=== PATIENT | male | born 1985 | race Two or more races ===

== ENCOUNTER 2017-11-07 13:21 | Emergency (ER) | payer MEDICAID ==
[~2017-11-07] VITALS: Ht 167.6 cm; Wt 81.6 kg
[2017-11-07 13:38] VITALS: BP 120/70
[2017-11-07 13:48] LABS: BASOPHILS % (AUTO) 0.8 % (0.0-2.0); EOSINOPHILS % (AUTO) 1.2 % (0.0-3.0); HEMATOCRIT 42.6 % (42.0-52.0); LYMPHOCYTES % (AUTO) 25.6 % (20.0-45.0); MEAN CORPUSCULAR VOLUME 94 FL (80-99); MONOCYTES % (AUTO) 6.9 % (1.0-10.0); NEUTROPHILS % (AUTO) 65.6 % (45.0-75.0); PLATELET COUNT 199 K/UL (150-450); RED BLOOD COUNT 4.53 M/UL (4.70-6.10); RED CELL DISTRIBUTION WIDTH 10.5 % (11.6-14.8); WHITE BLOOD COUNT 6.1 K/UL (4.8-10.8)
[2017-11-07 13:49] LABS: HEMOGLOBIN 15.5 G/DL (14.2-18.0)
--- NOTE | 2017-11-07 13:52 | Emergency Room Report ---
History of Present Illness General Chief Complaint: Chest Pain Source: Patient Present Illness HPI 32-year-old male with no medical problems presents with left-sided chest tightness or pain in his left arm reports it's like a squeezing type pain in his started at 3 AM last night, he is not taking medications for it but he did feel sensation shortness of breath since that time started, he has not had a syncopal episode, denies cough or hemoptysis, denies recent travel, leg pain leg swelling, any other symptoms at all. Allergies: Coded Allergies: No Known Allergies (Unverified , 11/07/17) Patient History Past Medical History: see triage record Social History: Reports: alcohol use, drug use - cocaine occasionally Reviewed Nursing Documentation: PMH: Agreed; PSxH: Agreed Nursing Documentation-PMH Past Medical History: No Stated History Review of Systems All Other Systems: negative except mentioned in HPI Physical Exam Vital Signs Date Time Temp Pulse Resp B/P (MAP) Pulse Ox O2 Delivery O2 Flow Rate FiO2 11/07/17 13:25 97.5 66 20 107/61 99 Room Air 97.5 Sp02 EP Interpretation: reviewed, normal General Appearance: normal inspection, well appearing, no apparent distress, alert, non-toxic Head: normocephalic Eyes: bilateral eye normal inspection, bilateral eye PERRL, bilateral eye EOMI ENT: normal ENT inspection, hearing grossly normal, normal pharynx, no angioedema, normal voice, moist mucus membranes Neck: normal inspection, full range of motion, supple, thyroid normal, supple/ symm/no masses Respiratory: normal inspection, chest non-tender, lungs clear, normal breath sounds, no respiratory distress, chest symmetrical, palpation of chest normal Cardiovascular #1: normal inspection, normal peripheral pulses, regular rate, rhythm, no edema, no gallop, no JVD, no murmur, no rub Cardiovascular #2: 2+ radial (R), 2+ radial (L), 2+ dorsalis pedis (R), 2+ dorsalis pedis (L) Gastrointestinal: normal inspection, non tender, soft, no mass, no guarding, no rebound Rectal: deferred Genitourinary: normal inspection, no CVA tenderness Musculoskeletal: back normal, gait/station normal, normal range of motion, non- tender, no calf tenderness Neurologic: alert, oriented x3, responsive, trial manager III-XII nml as tested, motor strength/tone normal, sensory intact, speech normal, no pronator, other - Normal finger-nose, normal heel to [place] bilaterally Psychiatric: judgement/insight normal, memory normal, mood/affect normal, no suicidal/homicidal ideation Skin: normal color, no rash, warm/dry, normal turgor Lymphatic: no adenopathy Medical Decision Making Diagnostic Impression: Primary Impression: Chest pain ER Course Patient has a negative troponin at 1:30 PM, and his symptoms started in the middle night, which is much greater than 6 hours of ongoing symptomatology with a normal EKG and negative troponin. His only risk factors for cardiac illness are a father who had an CO in his mid 50s. Patient does admit to cocaine use as recent as 2 weeks ago, as well as occasional alcohol and occasional tobacco use but reports the extent of his tobacco is maybe half a cigarette on the weekend only and not regularly. His workup is rather unremarkable today, he was given aspirin and Pepcid, he has been having this same symptomatology prior to arrival and does feel somewhat improved throughout the course of the day and now only minimal symptoms after getting aspirin and Pepcid. His heart score is 1, his BP in B/L UE is symmetrical, and I do not suspect DVT or PE. I have an exceedingly low suspicion for ACS and will dc patient with GERD meds and recommend return to ER for increasing CP or SOB or new symptoms such as vomiting , fever, syncope. EKG Diagnostic Results EKG Time: 13:29 EP Interpretation: no [id number], no st-t change, no twi's Rate: normal Rhythm: NSR ST Segments: no acute changes ASA given to the pt in ED: Yes Rhythm Strip Diag. Results Rhythm Strip Time: 13:52 EP Interpretation: yes Rate: 69 Rhythm: NSR, no PVC's, no ectopy Chest X-Ray Diagnostic Results Chest X-Ray Diagnostic Results : Chest X-Ray Ordered: Yes # of Views/Limited/Complete: 1 View EP Interpretation: Yes Interpretation: no consolidation, no effusion, no pneumothorax, no acute cardiopulmonary disease Impression: No acute disease Electronically Signed by: King Box MD Last Vital Signs Date Time Temp Pulse Resp B/P (MAP) Pulse Ox O2 Delivery O2 Flow Rate FiO2 11/07/17 13:38 69 20 Room Air 11/07/17 13:38 97.5 120/70 99 97.5 Status: improved Disposition: HOME, SELF-CARE Condition: Stable [place] M.D Nov 07, 2017 13:52
[2017-11-07 14:06] VITALS: BP 126/80
[2017-11-07 14:07] VITALS: BP 118/76
[2017-11-07 14:07] LABS: ANION GAP 9 mmol/L (5-15); BLOOD UREA NITROGEN 11 mg/dL (7-18); CARBON DIOXIDE 26 MMOL/L (21-32); CHLORIDE 105 MMOL/L (98-107); CREATININE 0.9 MG/DL (0.55-1.30); POTASSIUM 3.7 MMOL/L (3.5-5.1); SODIUM 140 MMOL/L (136-145)
[2017-11-07 14:11] LABS: ALANINE AMINOTRANSFERASE 54 U/L (12-78); ALBUMIN 4.1 G/DL (3.4-5.0); ALBUMIN/GLOBULIN RATIO 1.1 (1.0-2.7); ALKALINE PHOSPHATASE 94 U/L (46-116); ASPARTATE AMINO TRANSFERASE 24 U/L (15-37); BILIRUBIN,TOTAL 0.7 MG/DL (0.2-1.0)
[2017-11-07] MEDS ORDERED: PEPCID AC20 M2 PO (14:17)
--- NOTE | 2017-11-07 14:28 | Diagnostic Imaging Report ---
Indication: Chest pain Comparison: None A single view chest radiograph was obtained. Findings: Cardiomediastinal appearance is within normal limits for age. Pulmonary vascularity is appropriate. The diaphragmatic contour is smooth and costophrenic angles are sharp. No pleural effusions are identified. The bones are unremarkable. Impression: No acute findings
[2017-11-07 14:56] VITALS: BP 120/54
[2017-11-07 14:59] VITALS: BP 120/54
--- NOTE | 2017-11-09 17:03 | Cardiology Report ---
APPROVED REPORT EKG Measurement Heart [id number] Normal sinus rhythm Normal ECG
== END 2017-11-07 15:00 | disposition home or self-care (01) ==
LOC: EMR 14:56
DX: R07.89 Other chest pain (principal)
CPT/HCPCS: 36415; 71045; 80053; 84484; 85025; 93005; 99283